=== PATIENT | female | born 1975 | race Caucasian/White ===

== ENCOUNTER 2018-04-09 21:06 | Emergency (ER) | payer OTHER, MEDICAID ==
[~2018-04-09] VITALS: Ht 165.1 cm; Wt 63.5 kg
[~2018-04-09 21:06] MED LIST: NOHOMEMEDICATIONS; NORCO 5-325 TA1 EACH PO; NORFLEX100 MG PO
[2018-04-09 21:13] VITALS: BP 146/98
[2018-04-09] MEDS ORDERED: HYDROXYZINE HCL25 M1 PO (21:19)
[2018-04-09] MEDS ORDERED: FLEXERIL PO (21:19)
[2018-04-09] MEDS ORDERED: BACTRIM DS TAB1 EACH PO (21:31)
[2018-04-09] MEDS ORDERED: PREDNISONE 10 M10 M1 PO (21:31)
[2018-04-09] MEDS ORDERED: IBUPROFEN 800800 M1 PO (21:31)
== END 2018-04-09 21:44 | disposition home or self-care (01) ==
LOC: M.ERS 21:06
DX: N61.0 Mastitis without abscess (principal); Z90.710 Acquired absence of both cervix and uterus